=== PATIENT | female | born 1985 | race Caucasian/White ===

== ENCOUNTER 2016-09-28 14:24 | Observation (INO) | payer MEDICAID ==
--- NOTE | 2016-09-28 15:19 | C.PDOC ---
History Of Present Illness 30 y/o F c PMHx migraine, HTN p/w dizziness since last night. Describes dizziness as a room spinning sensation that occurs when patient moves her head towards the R. She denies fever, stiff neck, trauma, vomiting. She also notes that her L leg is swollen for months and has received a referral to another physician for varicose veins. Time Seen by Provider: 09/28/16 15:04 Chief Complaint (Nursing): Dizziness/Lightheaded Past Medical History Vital Signs: Last Vital Signs Temp 98.1 F 09/28/16 17:10 Pulse 71 09/28/16 17:10 Resp 18 09/28/16 17:10 BP 108/60 09/28/16 17:10 Pulse Ox 100 09/28/16 17:10 - Medical History PMH: HTN, Migraine Family History: States: No Known Family Hx - Social History Hx Alcohol Use: No Hx Substance Use: No - Immunization History Hx Tetanus Toxoid Vaccination: No Hx Influenza Vaccination: No Hx Pneumococcal Vaccination: No Review Of Systems Except As Marked, All Systems Reviewed And Found Negative. Constitutional: Negative for: Fever Cardiovascular: Negative for: Chest Pain Physical Exam - Physical Exam Additional Physical Exam Comments: Constitutional: No acute distress. Head: Normocephalic. Atraumatic. Eyes: PERRL. EOMI. ENT: Moist mucous membranes. Neck: Supple. Cardiovascular: Regular rate. Radial pulses 2+ bilaterally. Chest: No tenderness. Respiratory: Clear to auscultation bilaterally. GI: Soft. Nontender. Nondistended. Back: No CVA tenderness. No midline tenderness. Musculoskeletal: L lower leg swelling with varicose veins present. Skin: No rash. Neurologic: Alert, no focal deficit. Reproducible symptoms with movement of head towards R. Patient stays very still looking forward. ED Course And Treatment - Laboratory Results Result Diagrams: 09/28/16 15:48 09/28/16 15:48 O2 Sat by Pulse Oximetry: 100 Medical Decision Making Medical Decision Making: Will obtain doppler to rule out DVT. Will treat with meclizine for symptoms consistent with BPPV and reassess. EKG: Ordered, reviewed, and independently interpreted the EKG. Rate: 60 BPM Rhythm: Normal Sinus Rhythm Interpretation: No ST-segment elevations or depressions, no T-wave inversions. Patient with no improvement in symptoms. Doppler negative for DVT. Dr. Hobson accepts patient to his service for intractible vertigo. Disposition Discussed With .: Sarthak Hobson Doctor Will See Patient In The: Hospital - Disposition Disposition: HOSPITALIZED Disposition Time: 18:06 Condition: FAIR - Clinical Impression Clinical Impression: Vertigo
[2016-09-28 16:04] LABS: BASO % 0.7 % (0.0-2.0); EOS # 0.1 K/uL (0.0-0.7); EOS % 2.5 % (0.0-4.0); HEMATOCRIT 35.6 % (34.0-47.0); LYMPH # 1.8 K/uL (1.0-4.3); LYMPH % 30.4 % (20.0-40.0); MEAN CELL VOLUME 78.9 fL (81.0-99.0); MEAN CORPUSCULAR HEMOGLOBIN 25.7 pg (27.0-31.0); MEAN CORPUSCULAR HGB CONC 32.5 g/dL (33.0-37.0); MEAN PLATELET VOLUME 8.5 fL (7.2-11.7); MONO # 0.5 K/uL (0.0-0.8); MONO % 8.2 % (0.0-10.0); NRBC % 0.1 % (0.0-2.0); RED CELL DISTRIBUTION WIDTH 14.7 % (11.5-14.5); WHITE BLOOD COUNT 5.9 K/uL (4.8-10.8)
[2016-09-28 16:08] LABS: CHLORIDE 100 mmol/L (98-107)
[2016-09-28 16:09] LABS: POTASSIUM 3.5 mmol/L (3.6-5.2); SODIUM 137 mmol/L (132-148)
[2016-09-28 16:11] LABS: ALB/GLOB RATIO 1.1 (1.0-2.1); ALKALINE PHOSPHATASE 56 U/L (38-126); ALT/SGPT 34 U/L (9-52); AST/SGOT 17 U/L (14-36); BILIRUBIN,TOTAL 0.3 mg/dL (0.2-1.3); BLOOD UREA NITROGEN 12 mg/dL (7-17); CARBON DIOXIDE 25 mmol/L (22-30); GFR AFRICAN-AMERICAN > 60; GLUCOSE,RANDOM 93 mg/dL (65-105); TOTAL PROTEIN 6.9 g/dL (6.3-8.3)
[2016-09-28 16:12] LABS: CALCIUM 8.5 mg/dl (8.6-10.4)
[2016-09-28 20:47] VITALS: RESP 20
[2016-09-28] MEDS ORDERED: Potassium Chloride 20 mEq ER Tab PO STA (22:59)
--- NOTE | 2016-09-29 09:54 | CP.PCM.PN ---
Subjective - Date & Time of Evaluation Date of Evaluation: 09/29/16 Time of Evaluation: 09:50 - Subjective Subjective: Dr. Hobson service: Patient seen and examined in room. Patient reports having severe dizzienss with associated nausea and vomiting several times. She says it is associated when she turns her head to the right. She denies changes in vision, hearing, chest pain, admits to palpatations, no diarrhea, constipation, fever or chills. Meclizine only minimally improves her symptoms. Objective - Vital Signs/Intake and Output Vital Signs (last 24 hours): Temp Pulse Resp BP Pulse Ox 97.9 F 73 20 100/65 100 09/29/16 00:00 09/29/16 00:00 09/29/16 00:00 09/29/16 00:00 09/29/16 00:00 Intake and Output: 09/29/16 09/29/16 06:59 18:59 Intake Total 250 Balance 250 - Medications Medications: Current Medications Aspirin (Aspirin Chewable) 81 mg PO DAILY [facility] Atenolol (Tenormin) 25 mg PO DAILY [facility] Hydrochlorothiazide (Hydrodiuril) 25 mg PO DAILY [facility] Meclizine HCl (Antivert) 25 mg PO Q8H [facility] Last Admin: 09/29/16 08:50 Dose: 25 mg Topiramate (Topamax) 25 mg PO BID [facility] - Constitutional Appears: Non-toxic, No Acute Distress - Head Exam Head Exam: NORMAL INSPECTION - Eye Exam Eye Exam: EOMI, Normal appearance, PERRL. absent: Nystagmus Pupil Exam: NORMAL ACCOMODATION, PERRL - ENT Exam ENT Exam: Normal Exam - Neck Exam Neck Exam: Normal Inspection - Respiratory Exam Respiratory Exam: Clear to Ausculation Bilateral. absent: Rales, Rhonchi, Wheezes - Cardiovascular Exam Cardiovascular Exam: REGULAR RHYTHM, RRR, +S1, +S2, Murmur. absent: Gallop, Rubs - GI/Abdominal Exam GI & Abdominal Exam: Soft, Normal Bowel Sounds. absent: Tenderness - Extremities Exam Extremities Exam: Normal Inspection. absent: Pedal Edema - Back Exam Back Exam: NORMAL INSPECTION - Psychiatric Exam Psychiatric exam: Normal Affect, Normal Mood - Skin Skin Exam: Normal Color Assessment and Plan (1) Vertigo Assessment & Plan: Neruo consult, MRI today, follow up results. Will order physical therapy and occupational therapy. Continue Meclizine. Fall precuations. Topamax 25mg Status: Acute (2) HTN (hypertension) Assessment & Plan: Atenolol 25mg. HCTZ 25mg Status: Acute (3) Heart murmur Assessment & Plan: ekg showed sinus rythm Status: Acute (4) Prophylactic measure Assessment & Plan: pepcid 20mg lovenox 30mg sc scd Status: Acute
--- NOTE | 2016-09-29 16:14 | VASCLAB ---
PROCEDURE: Left Lower Extremity Venous Duplex Exam. score caller. HISTORY: Leg swelling, r/o DVT PRIORS: None. TECHNIQUE: Left common femoral, femoral, popliteal and posterior tibial, peroneal and great saphenous veins were evaluated. Flow was assessed with color Doppler, compressibility, assessment of phasic flow and augmentation response. Report prepared by DORA Lopez FINDINGS: LEFT: 1. Common Femoral Vein: 1.1. Compressibility - Fully compressible: Thrombus - None : Flow - Phasic: Augmentation -Normal: Reflux - None. 2. Femoral Vein: (distal only) 2.1. Compressibility - Fully compressible: Thrombus - None: Flow - Phasic: Augmentation -Normal: Reflux - None. 3. Popliteal Vein: 3.1. Compressibility - Fully compressible: Thrombus - None: Flow - Phasic: Augmentation -Normal: Reflux - None. 4. Posterior Tibial Vein: 4.1. Compressibility - Fully compressible: Thrombus - None: Flow - Phasic: Augmentation -Normal: Reflux - None. 5. Peroneal Vein: 5.1. Compressibility - Fully compressible: Thrombus - None: Flow - Phasic: Augmentation -Normal: Reflux - None. 6. Great Saphenous Vein: 6.1. Compressibility - Fully compressible: Thrombus - None: Flow - Phasic: Augmentation - Normal: Reflux - Moderate. OTHER FINDINGS: Unable to assess compressibility of the left proximal to mid, femoral vein, due to patient intolerance to pain. Vein is compressible distally. Normal phasic venous flow noted of the left femoral vein. IMPRESSION: The optimally visualized veins do not demonstrate evidence of thrombus. Valvular incompetence noted of the left great saphenous vein. Normal venous flow noted in the right common femoral vein.
[2016-09-29] MEDS ORDERED: Gadodiamide 287 mg/ml 20 ml IV ONE (16:35)
--- NOTE | 2016-09-29 18:54 | MRI ---
PROCEDURE: MRI BRAIN dated 09/29/2016. HISTORY: dizziness, r/o stroke, r/o tumor COMPARISON: None. TECHNIQUE: Multiplanar, multisequence MR images of the brain were obtained with and without intravenous contrast enhancement. FINDINGS: HEMORRHAGE: None DWI: No evidence of an acute or early subacute infarction. BRAIN PARENCHYMA: No mass,mass effect or edema. No atrophy or chronic microvascular ischemic changes. ENHANCEMENT: No abnormal intracranial enhancement. VENTRICLES: Unremarkable. No hydrocephalus. CRANIUM: Unremarkable. ORBITS: Grossly unremarkable. PARANASAL SINUSES/MASTOIDS: Clear VASCULAR SYSTEM: Visualized major vascular flow voids at skull base are patent. The OTHER FINDINGS: None . IMPRESSION: No acute intracranial hemorrhage.
[2016-09-29 19:29] LABS: BASO % 0.7 % (0.0-2.0); EOS # 0.2 K/uL (0.0-0.7); EOS % 2.9 % (0.0-4.0); HEMATOCRIT 36.2 % (34.0-47.0); LYMPH # 1.7 K/uL (1.0-4.3); MEAN CELL VOLUME 78.3 fL (81.0-99.0); MEAN CORPUSCULAR HEMOGLOBIN 25.8 pg (27.0-31.0); MEAN PLATELET VOLUME 8.4 fL (7.2-11.7); MONO # 0.3 K/uL (0.0-0.8); MONO % 4.7 % (0.0-10.0); RED CELL DISTRIBUTION WIDTH 14.7 % (11.5-14.5); WHITE BLOOD COUNT 6.9 K/uL (4.8-10.8)
[2016-09-29 19:34] LABS: CHLORIDE 99 mmol/L (98-107)
[2016-09-29 19:35] LABS: POTASSIUM 4.3 mmol/L (3.6-5.2); SODIUM 136 mmol/L (132-148)
[2016-09-29 19:37] LABS: ALB/GLOB RATIO 1.3 (1.0-2.1); ALKALINE PHOSPHATASE 51 U/L (38-126); ALT/SGPT 27 U/L (9-52); AST/SGOT 18 U/L (14-36); BILIRUBIN,TOTAL 0.3 mg/dL (0.2-1.3); BLOOD UREA NITROGEN 14 mg/dL (7-17); CARBON DIOXIDE 25 mmol/L (22-30); GFR AFRICAN-AMERICAN > 60; GLUCOSE,RANDOM 106 mg/dL (65-105); PHOSPHOROUS 2.9 mg/dL (2.5-4.5); TOTAL PROTEIN 6.9 g/dL (6.3-8.3)
--- NOTE | 2016-09-29 19:37 | CON ---
DATE: 09/29/2016 REASON FOR CONSULTATION: Dizziness. HISTORY OF PRESENT ILLNESS: The patient is a 30-year-old female who has been asked for evaluation of dizziness. The patient has started experiencing dizziness, for the last 1 week; however, yesterday she said the dizziness was severe. Dizziness is described as spinning sensation. It was not associa rm with any nausea or vomiting. Denies any focal weakness or numbness in arms or legs. She did not have any loss of vision. Because of the dizziness it was very difficult for her to stand or even wa lk. According to her, her dizziness is better than yesterday, however, she is still dizzy. REVIEW OF SYSTEMS: Positive for dizziness. Denies any headache, chest pain, shortness of breath, ab dominal pain, constipation, diarrhea, dysuria, pyuria, cough or sputum production. PAST MEDICAL HISTORY: Hypertension and migraine headaches. MEDICATIONS: At home included aspirin, Tenormin, Topamax, hydro uracil and phentermine. ALLERGIES: No known drug allergies. SOCIAL HISTORY: Denies smoking, use of alcohol or illicit drugs. FAMILY HISTORY: Reviewed and noncontributory to the case. PHYSICAL EXAMINATION: GENERAL: The patient is a middle-aged pleasant female, sitting in no acute distress. VITAL SIGNS: Her blood pressure is 122/76, heart rate is 71 per minute, breathing at a rate of 16 pe r minute, temperature is 98.4 degrees Fahrenheit. HEENT: Normocephalic, atraumatic. NECK: Supple. There are no carotid bruits. LUNGS: Clear. CARDIOVASCULAR: S1, S2 audible. No murmurs. ABDOMEN: Soft, nontender, bowel sounds present. NEUROLOGIC EXAMINATION: MENTAL STATUS: The patient is awake, alert, oriented to time, place, person. Speech is fluent. Nam ing and repetition normal. Memory and cognition are intact. CRANIAL NERVE EXAMINATION: Pupils are 4 mm bilaterally reactive to light. Visual breen are full. Extraocular movements are intact. There is no facial asymmetry. Palate is upgoing bilaterally and t ongue is midline. MOTOR EXAMINATION: Tone is normal. Power is 5/5 bilaterally in all extremities. Reflexes +2 and sy mmetrical. Plantars downgoing bilaterally. CEREBELLAR EXAMINATION: [id number] shows no dysmetria. Gait is slow and cautious. Romberg is n egative. LABORATORY DATA: Labs reviewed. Shows WBC is 5.9, hemoglobin 11.6, hematocrit 35.6 and platelets of 290. Sodium is 137, potassium 3.5, chloride 100, carbon dioxide 25, BUN of 12, creatinine 0.5, and glucose of 93. She had MRI of the brain done, which I have reviewed, shows no acute focal pathology. IMPRESSION: Dizziness, which appears likely secondary to labyrinthine dysfunction. RECOMMENDATIONS: 1. The patient to have 100 mg of IV Solu-Medrol x 1. 2. The patient to be continued on meclizine. 3. If patient's dizziness is better and MRI of the brain does not show any acute pathology, then she may be discharged with outpatient followup. Thank you for the opportunity to participate in the care of this patient. Cara Buckley MD cc: [id number] TT: 09/29/2016 19:36:33 Confirmation # [id number] Dictation # [id number]
[2016-09-29 19:38] LABS: CALCIUM 8.6 mg/dl (8.6-10.4); MAGNESIUM 2.2 mg/dL (1.6-2.3)
[2016-09-30 08:30] VITALS: BP 108/74; PULSE 70; TEMP 98.2; O2SAT 97
--- NOTE | 2016-09-30 08:36 | HP ---
The patient is a 30-year-old female admitted to the hospital with chief complaint of tired, malaise, weakness, fatigue. The patient came to the hospital, advised admission. The patient has history of intractable and vertigo. The patient denies history of alcohol. Denies history of nausea, vom iting. PHYSICAL EXAMINATION: GENERAL: The patient is awake, alert, oriented. VITAL SIGNS: Temperature 98, pulse 90. HEENT: Within normal limits. NECK: Supple. CHEST: Symmetrical. HEART: Regular. ABDOMEN: Soft. EXTREMITIES: No edema. The patient suffers from intractable vertigo . At this point, placed on bedrest, supportive car e, MRI of brain, neurology consult. Sarthak Roche MD cc: [id number] TT: 09/29/2016 12:55:12 en
[2016-09-30 08:41] LABS: CHLORIDE 101 mmol/L (98-107)
[2016-09-30 08:43] LABS: POTASSIUM 4.1 mmol/L (3.6-5.2); SODIUM 136 mmol/L (132-148)
[2016-09-30 08:45] LABS: ALB/GLOB RATIO 1.2 (1.0-2.1); ALKALINE PHOSPHATASE 62 U/L (38-126); ALT/SGPT 21 U/L (9-52); AST/SGOT 18 U/L (14-36); BILIRUBIN,TOTAL 0.3 mg/dL (0.2-1.3); BLOOD UREA NITROGEN 16 mg/dL (7-17); CARBON DIOXIDE 20 mmol/L (22-30); GFR AFRICAN-AMERICAN > 60; TOTAL PROTEIN 7.7 g/dL (6.3-8.3)
[2016-09-30 08:46] LABS: GLUCOSE,RANDOM 156 mg/dL (65-105); MAGNESIUM 2.1 mg/dL (1.6-2.3); PHOSPHOROUS 2.9 mg/dL (2.5-4.5)
[2016-09-30] MEDS ORDERED: Enoxaparin 30 mg Syringe SC SCH (10:00)
--- NOTE | 2016-09-30 11:42 | CP.PCM.PN ---
Subjective - Date & Time of Evaluation Date of Evaluation: 09/30/16 Time of Evaluation: 07:40 - Subjective Subjective: PGY2 Medicine Note - Dr. Hobson's service: Patient seen and examined in room. Patient reports dizziness whenever she stands up or lies flat in bed. Patient says she gets neck pain and headaches when she does not sleep flat in bed. She denies changes in vision, hearing, chest pain, admits to palpatations, no diarrhea, constipation, fever or chills. Meclizine only minimally improves her symptoms. Objective - Vital Signs/Intake and Output Vital Signs (last 24 hours): Temp Pulse Resp BP Pulse Ox 98.2 F 70 20 108/74 97 09/30/16 08:00 09/30/16 08:00 09/30/16 08:00 09/30/16 08:00 09/30/16 08:00 Intake and Output: 09/30/16 09/30/16 06:59 18:59 Intake Total 150 Balance 150 - Medications Medications: Current Medications Aspirin (Aspirin Chewable) 81 mg PO DAILY [facility] Last Admin: 09/30/16 10:55 Dose: 81 mg Atenolol (Tenormin) 25 mg PO DAILY [facility] Last Admin: 09/30/16 10:57 Dose: 25 mg Enoxaparin Sodium (Lovenox) 30 mg SC DAILY [facility] Last Admin: 09/30/16 10:56 Dose: 30 mg Famotidine (Pepcid) 20 mg PO DAILY [facility] Last Admin: 09/30/16 10:56 Dose: 20 mg Hydrochlorothiazide (Hydrodiuril) 25 mg PO DAILY [facility] Last Admin: 09/30/16 10:55 Dose: 25 mg Ibuprofen (Motrin Tab) 400 mg PO Q6H PRN PRN Reason: Headache Meclizine HCl (Antivert) 25 mg PO Q8H [facility] Last Admin: 09/30/16 08:00 Dose: 25 mg Topiramate (Topamax) 25 mg PO BID [facility] Last Admin: 09/30/16 10:55 Dose: 25 mg - Labs Labs: 09/29/16 19:25 09/30/16 08:18 - Constitutional Appears: Non-toxic, No Acute Distress - Head Exam Head Exam: NORMAL INSPECTION - Eye Exam Eye Exam: EOMI - ENT Exam ENT Exam: Mucous Membranes Moist - Respiratory Exam Respiratory Exam: Clear to Ausculation Bilateral, NORMAL BREATHING PATTERN. absent: Rales, Rhonchi, Wheezes - Cardiovascular Exam Cardiovascular Exam: REGULAR RHYTHM, +S1, +S2. absent: Gallop, Rubs, Murmur - GI/Abdominal Exam GI & Abdominal Exam: Soft, Normal Bowel Sounds. absent: Distended, Firm, Tenderness - Extremities Exam Extremities Exam: Normal Capillary Refill. absent: Pedal Edema Additional comments: varicose veins - Neurological Exam Neurological Exam: Alert, Oriented x3 - Psychiatric Exam Psychiatric exam: Normal Affect, Normal Mood - Skin Skin Exam: Normal Color, Warm Assessment and Plan - Assessment and Plan (Free Text) Assessment: (1) Vertigo Assessment & Plan: 09/30: Brain MRI - no acute intracranial hemorrhage Orthostatic vitals negative for orthostatic hypotension Patient discharged with meclizine and lidocaine cream for neck pain 09/29: Neuro consult, MRI today, follow up results. Will order physical therapy and occupational therapy. Continue Meclizine. Fall precuations. Topamax 25mg Status: Acute (2) HTN (hypertension) Assessment & Plan: Atenolol 25mg. HCTZ 25mg Status: Acute (3) Heart murmur Assessment & Plan: ekg showed sinus rythm No cardio consult per Dr. Hobson Status: Acute (4) Prophylactic measure Assessment & Plan: pepcid 20mg lovenox 30mg sc scd Status: Acute
[2016-09-30 14:02] LABS: BASO # 0.1 K/uL (0.0-0.2); BASO % 0.7 % (0.0-2.0); EOS % 0.2 % (0.0-4.0); HEMATOCRIT 40.8 % (34.0-47.0); LYMPH # 2.6 K/uL (1.0-4.3); LYMPH % 17.2 % (20.0-40.0); MEAN CELL VOLUME 78.5 fL (81.0-99.0); MEAN CORPUSCULAR HEMOGLOBIN 25.6 pg (27.0-31.0); MEAN CORPUSCULAR HGB CONC 32.6 g/dL (33.0-37.0); MEAN PLATELET VOLUME 8.3 fL (7.2-11.7); MONO # 1.1 K/uL (0.0-0.8); MONO % 6.9 % (0.0-10.0); NRBC % 0.1 % (0.0-2.0); RED CELL DISTRIBUTION WIDTH 14.4 % (11.5-14.5)
[2016-09-30 14:03] LABS: WHITE BLOOD COUNT 15.3 K/uL (4.8-10.8)
--- NOTE | 2016-09-30 18:56 | CARD ---
APPROVED REPORT EKG Measurement Heart [id number] <Conclusion> Sinus bradycardia Otherwise normal ECG
== END 2016-09-30 15:30 | disposition home or self-care (01) ==
LOC: C.ER 14:24 → C.9E 18:54 → C.3T 19:47
PROVIDERS: ADMIT Internal Medicine Pulmonary Disease; ATTEND Internal Medicine Pulmonary Disease
DX: R42 Dizziness and giddiness (principal); R11.2 Nausea with vomiting, unspecified; R01.1 Cardiac murmur, unspecified; I10 Essential (primary) hypertension; G43.909 Migraine, unspecified, not intractable, without status migrainosus
CPT/HCPCS: 36415; 70553; 80053; 83735; 84100; 85025; 93005; 93971; 97116; 97161; 97165; 97530; 99285; A9579; G0378; G8978; G8979; G8987; G8988; J1650; J2930

== ENCOUNTER 2018-10-30 08:19 | Outpatient (CLI) | payer OTHER | END 2018-10-30 08:20 | disposition home or self-care (01) | LOC: C.VASC 08:19 | DX: I87.2 Venous insufficiency (chronic) (peripheral) (principal) ==

== ENCOUNTER 2018-11-01 09:16 | Outpatient (CLI) | payer OTHER | END 2018-11-01 09:17 | disposition home or self-care (01) | LOC: C.PAT 09:16 | DX: I83.10 Varicose veins of unspecified lower extremity with inflammation (principal); D48.7 Neoplasm of uncertain behavior of other specified sites ==

== ENCOUNTER 2018-11-03 10:07 | Day surgery (SDC) | payer OTHER ==
[2018-11-03 11:18] VITALS: BMI 37.1
[2018-11-03] MEDS ORDERED: Propofol 10 mg/ml Inj (20 ML) ONE (12:58)
[2018-11-03] MEDS ORDERED: Midazolam 2 MG/2 ML VIAL ONE (12:58)
[2018-11-03] MEDS ORDERED: ceFAZolin 1 gm in NS 0 GM/0 ML BAG IVPB ONE (13:10)
[2018-11-03] MEDS ORDERED: Succinylcholine Chloride 20 mg/ml Syr (5 ml) IV ONE (13:16)
[2018-11-03] MEDS ORDERED: Rocuronium 10 mg/ml (5 ml) ONE (13:16)
[2018-11-03] MEDS ORDERED: Doxycycline 100 mg Inj ONE (13:28)
[2018-11-03] MEDS ORDERED: HYDROmorphone 0.5 mg/0.5 ml ISec IVP PRN (14:45)
[2018-11-03] MEDS ORDERED: Oxycodone/Acetaminophen 5/325 mg Tab PO PRN (14:49)
[2018-11-03] MEDS: HYDROmorphone 0.5 mg/0.5 ml ISec IVP PRN ×2 (15:00→15:22)
[2018-11-03] MEDS ORDERED: Lactated Ringer's 1,000 ML IV ONE ×2 (15:23)
[2018-11-03 17:08] VITALS: BP 169/60; PULSE 66; RESP 18; TEMP 97; O2SAT 100
--- NOTE | 2018-11-08 12:37 | OP ---
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 PROCEDURE PERFORMED: Wide and deep excision of vascular malformation of the left calf with excision of separate varicose veins. SURGEON: Davide Marcial MD ANESTHESIA: General. ESTIMATED BLOOD LOSS: 100 mL. POSTOPERATIVE CONDITION: Stable. INDICATIONS FOR SURGERY: This is a 33-year-old female with a painful vascular malformation of the left calf along with associated large varicose vein. She is admitted for excision of both. DESCRIPTION OF PROCEDURE: The patient was taken to the operating room. General anesthesia was administered. She was placed in a prone position. The left lower extremity was prepped and draped. An elliptical incision was made surrounding the vascular malformation, it was excised into the fascia and removed. Bleeding was controlled using the Bovie. Tissue flaps were raised and an adjacent tissue transfer closure was performed with subcuticular Monocryl and glue. The pre-marked varicose veins were then removed via stab phlebectomy. A total of 10 incisions were made. Each incision was closed with simple Monocryl suture and glue. The patient tolerated the procedure well and returned to the recovery room in stable condition. Davide Marcial MD
== END 2018-11-03 17:45 | disposition home or self-care (01) ==
LOC: C.SDS 10:07
PROVIDERS: ATTEND Surgery
DX: I83.12 Varicose veins of left lower extremity with inflammation (principal); Q27.9 Congenital malformation of peripheral vascular system, unspecified; I10 Essential (primary) hypertension; E11.9 Type 2 diabetes mellitus without complications
CPT/HCPCS: 35184; 37765; 82948; 88305; J1170; J2001; J2250; J2704; J3010; J7120